=== PATIENT | male | born 1975 | race Caucasian/White ===

== ENCOUNTER 2017-04-22 19:07 | Emergency (ER) | payer MEDICAID ==
[~2017-04-22] VITALS: Ht 157.5 cm; Wt 68.2 kg
[~2017-04-22 19:07] MED LIST: METH10 PO
[2017-04-22] MEDS ORDERED: TRAZ-147 PO (19:44)
[2017-04-22] MEDS ORDERED: ARIP2 PO (19:44)
[2017-04-22] MEDS ORDERED: HYDROCODONE/ACETAMINOPHEN 5-325 MG TABLET PO ONE (20:45)
[2017-04-22] MEDS ORDERED: DEXAMETHASONE SOD PHOS 4 MG/ML 5 ML VIAL IM ONE (20:45)
[2017-04-22 21:45] VITALS: BP 127/88
== END 2017-04-22 21:47 | disposition home or self-care (01) ==
LOC: EMS 19:10
DX: J02.9 Acute pharyngitis, unspecified (principal); R51 Headache; R13.10 Dysphagia, unspecified; F17.210 Nicotine dependence, cigarettes, uncomplicated
CPT/HCPCS: 87430; 96372; 99283; J1100